=== PATIENT | male | born 1985 | race Caucasian/White ===

== ENCOUNTER 2016-01-17 10:21 | Inpatient (IN) | payer OTHER ==
[2016-01-17] MEDS ORDERED: MAGNESIUM CITRATE 300 ML BOTTLE PO PRN (11:05)
[2016-01-17] MEDS ORDERED: LOPERAMIDE HCL 2 MG CAPSULE PO PRN (11:05)
[2016-01-17] MEDS ORDERED: MENTHOL/PHENOL 1 EACH UD MM PRN (11:05)
[2016-01-17] MEDS ORDERED: MAGNESIUM HYDROX 2400MG/30ML ORAL SUSPENSION 30 ML CUP PO PRN (11:05)
[2016-01-17] MEDS ORDERED: NICOTINE POLACRILEX 4 MG GUM BUC PRN (11:05)
[2016-01-17] MEDS ORDERED: P-EPHED 60MG/TRIPROLIDI 2.5MG TABLET PO PRN (11:05)
[2016-01-17] MEDS ORDERED: ACETAMINOPHEN 325 MG TABLET (FP) PO PRN (11:05)
[2016-01-17] MEDS ORDERED: IBUPROFEN 400 MG TABLET (FP) PO PRN ×2 (11:05→11:11)
[2016-01-17] MEDS ORDERED: guaiFENesin/D-METHORPHAN HB 10 ML UNIT-DOSE CUPS PO PRN (11:05)
[2016-01-17] MEDS ORDERED: MAG HYDROX/AL HYDROX/SIMETH 30 ML UNIT-DOSE CUP PO PRN (11:05)
[2016-01-17] MEDS ORDERED: LIDOCAINE VISCOUS 2% ORAL/TOP 20 ML UNIT-DOSE CUP MM PRN (11:07)
--- NOTE | 2016-01-17 11:13 | HP ---
[facility] Rehab Assess/Revision - Admission History Admitted to Rehab from: [facility] [place] Date of Admission to Rehab: 01/17/16 - Vital signs Vital Signs: Vital Signs - 24 hr 01/17/16 11:32 Temperature 98.2 F Pulse Rate 82 Respiratory 18 Rate Blood Pressure 120/66 - Findings Detox History & Physical reviewed: Yes Concur with findings: Yes
[2016-01-17] MEDS: THIAMINE HCL 100 MG TABLET (FP) PO SCH (21:22)
[2016-01-17] MEDS: diphenhydrAMINE HCL 50 MG CAPSULE PO PRN (21:22)
[2016-01-17] MEDS ORDERED: IBUPROFEN 600 MG TABLET (FP) PO PRN (21:24)
[2016-01-18] MEDS: NICOTINE 21 MG/24 HOURS TOPICAL PATCH TD SCH (09:54)
[2016-01-18] MEDS: PRENATAL VITAMINS W/ FOLIC ACID TABLET (FP) PO SCH (09:54)
[2016-01-18] MEDS: THIAMINE HCL 100 MG TABLET (FP) PO SCH (21:35)
[2016-01-18] MEDS: QUEtiapine FUMARATE 50 MG TABLET PO SCH (21:35)
[2016-01-18] MEDS: diphenhydrAMINE HCL 50 MG CAPSULE PO PRN (21:36)
[2016-01-19] MEDS: NICOTINE 21 MG/24 HOURS TOPICAL PATCH TD SCH (09:46)
[2016-01-19] MEDS: PRENATAL VITAMINS W/ FOLIC ACID TABLET (FP) PO SCH (09:46)
--- NOTE | 2016-01-19 11:07 | HP ---
Psychiatrist Admission - Data Date of interview: 01/19/16 Admission source: [facility] Identifying data: THis is the first [facility] inpatient rehabilitation admission for thsi 30 year old single male unemployed father of one, residing with his mother in [facility]. Medical History: Report a good health, smokes cigarettes a Psychiatric History: Patient states was seen by a psychiatrist while at [facility] to address depressed mood and insomnia and started with Seroquel 50 mg po hs, with fair response. No history of psychiatric hospitalizations. Physical/Sexual Abuse/Trauma History: Denies history of sexual, physical and verbal abuse. Vital Signs: Vital Signs - 24 hr 01/19/16 01/19/16 01/19/16 00:30 03:30 07:00 Temperature 97.0 F L Pulse Rate 82 Respiratory 18 18 18 Rate Blood Pressure 125/76 Allergies/Adverse Reactions: Allergies Allergy/AdvReac Type Severity Reaction Status Date / Time No Known Allergies Allergy Verified 01/12/16 17:33 Date of last physical exam: 01/12/16 Concur with the findings of this exam: Yes - Substance Abuse/Tx History Hx Alcohol Use: No Hx Substance Use: Yes Substance Use Type: Cocaine (1 bag), Heroin (10 bags), Marijuana (1 blunt) Hx Substance Use Treatment: Yes ([facility]) - Admission Criteria Previous failed treatment: Yes Poor recovery environment: Yes Comorbidities: Yes Lacks judgement: Yes Mental Status Exam - Mental Status Exam Alert and Oriented to: Time, Place, Person Cognitive Function: Grossly Intact Patient Appearance: Well Groomed Mood: Depressed, Sad Affect: Appropriate, Inappropriate, Mood Congruent Patient Behavior: Appropriate, Cooperative Speech Pattern: Clear, Appropriate Voice Loudness: Normal Thought Process: Intact, Goal Oriented Thought Disorder: Not Present Hallucinations: Denies Suicidal Ideation: Denies Homicidal Ideation: Denies Insight/Judgement: Fair Sleep: Fair Appetite: Fair Muscle strength/Tone: Normal Gait/Station: Normal Psychiatric Findings - Problem List ([place] 1, 2,3) (1) Cannabis dependence, uncomplicated Current Visit: No Status: Acute (2) Cocaine dependence, uncomplicated Current Visit: No Status: Acute (3) Insomnia Current Visit: No Status: Acute Qualifiers: Insomnia type: drug-induced Qualified Code(s): F19.982 - Other psychoactive substance use, unspecified with psychoactive substance-induced sleep disorder (4) Opioid dependence with withdrawal Current Visit: No Status: Acute (5) Mood disorder Current Visit: Yes Status: Acute - Initial Treatment Plan Initial Treatment Plan: will continue seroquel, monitor progress as needed.
[2016-01-19] MEDS: diphenhydrAMINE HCL 50 MG CAPSULE PO PRN (21:17)
[2016-01-19] MEDS: QUEtiapine FUMARATE 50 MG TABLET PO SCH (21:17)
[2016-01-19] MEDS: THIAMINE HCL 100 MG TABLET (FP) PO SCH (21:17)
[2016-01-20] MEDS: PRENATAL VITAMINS W/ FOLIC ACID TABLET (FP) PO SCH (09:55)
[2016-01-20] MEDS: NICOTINE 21 MG/24 HOURS TOPICAL PATCH TD SCH (09:55)
[2016-01-20] MEDS: diphenhydrAMINE HCL 50 MG CAPSULE PO PRN (21:35)
[2016-01-20] MEDS: QUEtiapine FUMARATE 50 MG TABLET PO SCH (21:35)
[2016-01-20] MEDS: THIAMINE HCL 100 MG TABLET (FP) PO SCH (21:36)
[2016-01-21] MEDS: NICOTINE 21 MG/24 HOURS TOPICAL PATCH TD SCH (09:52)
[2016-01-21] MEDS: PRENATAL VITAMINS W/ FOLIC ACID TABLET (FP) PO SCH (09:52)
[2016-01-21] MEDS: diphenhydrAMINE HCL 50 MG CAPSULE PO PRN (21:36)
[2016-01-21] MEDS: THIAMINE HCL 100 MG TABLET (FP) PO SCH (21:36)
[2016-01-21] MEDS: QUEtiapine FUMARATE 50 MG TABLET PO SCH (21:36)
[2016-01-22] MEDS: NICOTINE 21 MG/24 HOURS TOPICAL PATCH TD SCH (10:20)
[2016-01-22] MEDS: PRENATAL VITAMINS W/ FOLIC ACID TABLET (FP) PO SCH (10:20)
[2016-01-22] MEDS: THIAMINE HCL 100 MG TABLET (FP) PO SCH (21:46)
[2016-01-22] MEDS: QUEtiapine FUMARATE 50 MG TABLET PO SCH (21:46)
[2016-01-22] MEDS: diphenhydrAMINE HCL 50 MG CAPSULE PO PRN (21:47)
[2016-01-23] MEDS: NICOTINE 21 MG/24 HOURS TOPICAL PATCH TD SCH (09:52)
[2016-01-23] MEDS: PRENATAL VITAMINS W/ FOLIC ACID TABLET (FP) PO SCH (09:52)
[2016-01-23] MEDS: THIAMINE HCL 100 MG TABLET (FP) PO SCH (21:41)
[2016-01-23] MEDS: QUEtiapine FUMARATE 50 MG TABLET PO SCH (21:41)
[2016-01-23] MEDS: diphenhydrAMINE HCL 50 MG CAPSULE PO PRN (21:42)
[2016-01-24] MEDS: NICOTINE 21 MG/24 HOURS TOPICAL PATCH TD SCH (09:48)
[2016-01-24] MEDS: PRENATAL VITAMINS W/ FOLIC ACID TABLET (FP) PO SCH (09:48)
[2016-01-24] MEDS: QUEtiapine FUMARATE 50 MG TABLET PO SCH (21:33)
[2016-01-24] MEDS: THIAMINE HCL 100 MG TABLET (FP) PO SCH (21:33)
[2016-01-24] MEDS: diphenhydrAMINE HCL 50 MG CAPSULE PO PRN (21:34)
[2016-01-25] MEDS: NICOTINE 21 MG/24 HOURS TOPICAL PATCH TD SCH (10:35)
[2016-01-25] MEDS: PRENATAL VITAMINS W/ FOLIC ACID TABLET (FP) PO SCH (10:35)
[2016-01-25] MEDS: QUEtiapine FUMARATE 50 MG TABLET PO SCH (21:23)
[2016-01-25] MEDS: THIAMINE HCL 100 MG TABLET (FP) PO SCH (21:23)
[2016-01-26] MEDS: NICOTINE 21 MG/24 HOURS TOPICAL PATCH TD SCH (10:32)
[2016-01-26] MEDS: PRENATAL VITAMINS W/ FOLIC ACID TABLET (FP) PO SCH (10:32)
[2016-01-26] MEDS: THIAMINE HCL 100 MG TABLET (FP) PO SCH (21:14)
[2016-01-26] MEDS: QUEtiapine FUMARATE 50 MG TABLET PO SCH (21:14)
[2016-01-26] MEDS: diphenhydrAMINE HCL 50 MG CAPSULE PO PRN (21:15)
[2016-01-27] MEDS: PRENATAL VITAMINS W/ FOLIC ACID TABLET (FP) PO SCH (10:40)
[2016-01-27] MEDS: NICOTINE 21 MG/24 HOURS TOPICAL PATCH TD SCH (10:40)
[2016-01-27] MEDS: QUEtiapine FUMARATE 50 MG TABLET PO SCH (21:33)
[2016-01-27] MEDS: THIAMINE HCL 100 MG TABLET (FP) PO SCH (21:33)
[2016-01-28] MEDS: NICOTINE 21 MG/24 HOURS TOPICAL PATCH TD SCH (10:23)
[2016-01-28] MEDS: PRENATAL VITAMINS W/ FOLIC ACID TABLET (FP) PO SCH (10:23)
[2016-01-28] MEDS: QUEtiapine FUMARATE 50 MG TABLET PO SCH (21:45)
[2016-01-28] MEDS: THIAMINE HCL 100 MG TABLET (FP) PO SCH (21:45)
[2016-01-29] MEDS: NICOTINE 21 MG/24 HOURS TOPICAL PATCH TD SCH (10:25)
[2016-01-29] MEDS: PRENATAL VITAMINS W/ FOLIC ACID TABLET (FP) PO SCH (10:25)
[2016-01-29] MEDS: THIAMINE HCL 100 MG TABLET (FP) PO SCH (21:48)
[2016-01-29] MEDS: diphenhydrAMINE HCL 50 MG CAPSULE PO PRN (21:48)
[2016-01-29] MEDS: QUEtiapine FUMARATE 50 MG TABLET PO SCH (21:48)
[2016-01-30] MEDS: NICOTINE 21 MG/24 HOURS TOPICAL PATCH TD SCH (09:57)
[2016-01-30] MEDS: PRENATAL VITAMINS W/ FOLIC ACID TABLET (FP) PO SCH (09:57)
[2016-01-30] MEDS: diphenhydrAMINE HCL 50 MG CAPSULE PO PRN (21:09)
[2016-01-30] MEDS: QUEtiapine FUMARATE 50 MG TABLET PO SCH (21:09)
[2016-01-30] MEDS: THIAMINE HCL 100 MG TABLET (FP) PO SCH (21:09)
[2016-01-31] MEDS: PRENATAL VITAMINS W/ FOLIC ACID TABLET (FP) PO SCH (09:58)
[2016-01-31] MEDS: NICOTINE 21 MG/24 HOURS TOPICAL PATCH TD SCH (09:58)
[2016-01-31] MEDS: QUEtiapine FUMARATE 50 MG TABLET PO SCH (22:00)
[2016-01-31] MEDS: THIAMINE HCL 100 MG TABLET (FP) PO SCH (22:00)
[2016-01-31] MEDS: diphenhydrAMINE HCL 50 MG CAPSULE PO PRN (22:01)
[2016-02-01] MEDS: PRENATAL VITAMINS W/ FOLIC ACID TABLET (FP) PO SCH (09:47)
[2016-02-01] MEDS: NICOTINE 21 MG/24 HOURS TOPICAL PATCH TD SCH (09:47)
[2016-02-01] MEDS: diphenhydrAMINE HCL 50 MG CAPSULE PO PRN (21:42)
[2016-02-01] MEDS: QUEtiapine FUMARATE 50 MG TABLET PO SCH (21:42)
[2016-02-01] MEDS: THIAMINE HCL 100 MG TABLET (FP) PO SCH (21:42)
[2016-02-02] MEDS: NICOTINE 21 MG/24 HOURS TOPICAL PATCH TD SCH (10:01)
[2016-02-02] MEDS: PRENATAL VITAMINS W/ FOLIC ACID TABLET (FP) PO SCH (10:01)
[2016-02-02] MEDS: THIAMINE HCL 100 MG TABLET (FP) PO SCH (21:32)
[2016-02-02] MEDS: QUEtiapine FUMARATE 50 MG TABLET PO SCH (21:33)
[2016-02-02] MEDS: diphenhydrAMINE HCL 50 MG CAPSULE PO PRN (22:21)
[2016-02-03] MEDS: PRENATAL VITAMINS W/ FOLIC ACID TABLET (FP) PO SCH (10:19)
[2016-02-03] MEDS: NICOTINE 21 MG/24 HOURS TOPICAL PATCH TD SCH (10:19)
[2016-02-03] MEDS: QUEtiapine FUMARATE 50 MG TABLET PO SCH (21:17)
[2016-02-03] MEDS: THIAMINE HCL 100 MG TABLET (FP) PO SCH (21:17)
[2016-02-04] MEDS: NICOTINE 21 MG/24 HOURS TOPICAL PATCH TD SCH (10:06)
[2016-02-04] MEDS: PRENATAL VITAMINS W/ FOLIC ACID TABLET (FP) PO SCH (10:06)
[2016-02-04] MEDS: QUEtiapine FUMARATE 50 MG TABLET PO SCH (21:29)
[2016-02-04] MEDS: THIAMINE HCL 100 MG TABLET (FP) PO SCH (21:29)
[2016-02-05] MEDS: NICOTINE 21 MG/24 HOURS TOPICAL PATCH TD SCH (10:03)
[2016-02-05] MEDS: PRENATAL VITAMINS W/ FOLIC ACID TABLET (FP) PO SCH (10:03)
[2016-02-05] MEDS: QUEtiapine FUMARATE 50 MG TABLET PO SCH (21:56)
[2016-02-05] MEDS: diphenhydrAMINE HCL 50 MG CAPSULE PO PRN (21:56)
[2016-02-05] MEDS: THIAMINE HCL 100 MG TABLET (FP) PO SCH (21:56)
[2016-02-06] MEDS: PRENATAL VITAMINS W/ FOLIC ACID TABLET (FP) PO SCH (10:02)
[2016-02-06] MEDS: NICOTINE 21 MG/24 HOURS TOPICAL PATCH TD SCH (10:02)
[2016-02-06] MEDS: QUEtiapine FUMARATE 50 MG TABLET PO SCH (21:31)
[2016-02-06] MEDS: THIAMINE HCL 100 MG TABLET (FP) PO SCH (21:31)
[2016-02-06] MEDS: diphenhydrAMINE HCL 50 MG CAPSULE PO PRN (21:32)
[2016-02-07] MEDS: NICOTINE 21 MG/24 HOURS TOPICAL PATCH TD SCH (09:52)
[2016-02-07] MEDS: PRENATAL VITAMINS W/ FOLIC ACID TABLET (FP) PO SCH (09:52)
[2016-02-07] MEDS: QUEtiapine FUMARATE 50 MG TABLET PO SCH (21:40)
[2016-02-07] MEDS: THIAMINE HCL 100 MG TABLET (FP) PO SCH (21:40)
[2016-02-07] MEDS: diphenhydrAMINE HCL 50 MG CAPSULE PO PRN (21:40)
[2016-02-08] MEDS: PRENATAL VITAMINS W/ FOLIC ACID TABLET (FP) PO SCH (09:37)
[2016-02-08] MEDS: NICOTINE 21 MG/24 HOURS TOPICAL PATCH TD SCH (09:37)
[2016-02-08] MEDS: QUEtiapine FUMARATE 50 MG TABLET PO SCH (21:41)
[2016-02-08] MEDS: THIAMINE HCL 100 MG TABLET (FP) PO SCH (21:41)
[2016-02-09] MEDS: NICOTINE 21 MG/24 HOURS TOPICAL PATCH TD SCH (09:49)
[2016-02-09] MEDS: PRENATAL VITAMINS W/ FOLIC ACID TABLET (FP) PO SCH (09:49)
[2016-02-09] MEDS: THIAMINE HCL 100 MG TABLET (FP) PO SCH (21:46)
[2016-02-09] MEDS: QUEtiapine FUMARATE 50 MG TABLET PO SCH (21:46)
[2016-02-09] MEDS: diphenhydrAMINE HCL 50 MG CAPSULE PO PRN (21:47)
[2016-02-10] MEDS: PRENATAL VITAMINS W/ FOLIC ACID TABLET (FP) PO SCH (09:53)
[2016-02-10] MEDS: NICOTINE 21 MG/24 HOURS TOPICAL PATCH TD SCH (09:53)
[2016-02-10] MEDS: diphenhydrAMINE HCL 50 MG CAPSULE PO PRN (21:07)
[2016-02-10] MEDS: QUEtiapine FUMARATE 50 MG TABLET PO SCH (21:07)
[2016-02-10] MEDS: THIAMINE HCL 100 MG TABLET (FP) PO SCH (21:07)
[2016-02-11] MEDS: NICOTINE 21 MG/24 HOURS TOPICAL PATCH TD SCH (09:55)
[2016-02-11] MEDS: PRENATAL VITAMINS W/ FOLIC ACID TABLET (FP) PO SCH (09:56)
--- NOTE | 2016-02-11 17:17 | PN ---
Psychiatric Progress Note Vital Signs: Vital Signs Period Temp Pulse Resp BP Sys/Gibson Pulse Ox Last 24 Hr 97.3 F 86 18-18 113/70 Date of Session: 02/11/16 Chief Complaint:: Discharge visit HPI: Patient addressed Cocaine,Cannabis and Opioid dependence comorbid with Substance induced mood disorder. ROS: unremarkable Current Medications: Active Medications Generic Name Dose Route Start Last Admin Trade Name Freq PRN Reason Stop Dose Admin Acetaminophen 650 mg 01/17/16 11:05 01/25/16 21:23 Tylenol - PO 650 mg Q4H PRN Administration FEVER OR PAIN Al Hydroxide/Mg Hydroxide 30 ml 01/17/16 11:05 Mylanta Oral Suspension - PO Q6H PRN DYSPEPSIA Diphenhydramine HCl 50 mg 01/17/16 11:05 02/10/16 21:07 Benadryl - PO 50 mg HSMR1 PRN Administration FOR ITCHING Eucalyptus/Menthol/Phenol/Sorbitol 1 each 01/17/16 11:05 Cepastat Lozenge - MM Q4H PRN SORE THROAT Guaifenesin 10 ml 01/17/16 11:05 Robitussin Dm - PO Q6H PRN COUGH Ibuprofen 600 mg 01/17/16 21:24 01/17/16 21:54 Motrin - PO 600 mg Q6H PRN Administration PAIN Lidocaine HCl 20 ml 01/17/16 11:07 Xylocaine 2% Viscous Oral - MM Q4HPO PRN ORAL PAIN/MOUTH SORES Loperamide HCl 4 mg 01/17/16 11:05 Imodium - PO Q6H PRN DIARRHEA Magnesium Hydroxide 30 ml 01/17/16 11:05 Milk Of Magnesia - PO DAILY PRN CONSTIPATION Nicotine 21 mg 01/18/16 10:00 02/11/16 09:55 Nicoderm Patch - TD Not Given DAILY BETTY Nicotine Polacrilex 4 mg 01/17/16 11:05 Nicorette Gum - BUC Q2H PRN NICOTINE REPLACEMENT RX Multivit/Folic Acid/Iron 1 tab 01/18/16 10:00 02/11/16 09:56 Vitamins (Sjr) - PO Not Given DAILY BETTY Pseudoephedrine/Triprolidine 1 combo 01/17/16 11:05 Actifed - PO TID PRN NASAL CONGESTION Quetiapine Fumarate 50 mg 01/18/16 22:00 01/03/17 21:07 Seroquel - PO 50 mg HS BETTY Administration Thiamine HCl 100 mg 01/17/16 22:00 02/10/16 21:07 Vitamin B1 - PO 100 mg HS BETTY Administration Current Side Effect: No Lab tests ordered: No Lab tests reviewed: Yes Provider note:: Patient will complete this program tomorrow 02/12/2016.He has met his treatment goals and will continue to address his issues on outpatient basis at [facility] rehabilitation program.Patient continues to find that seroquel 50 mg po hs helps to reduce some sleeping difficulties as well as mood instability.script for 30 days provided. Therapy provided focusing on copins skills,support system utilization to prevent relapse,maintain recovery process. Patient is stable for discharge tomorrow 02/12/16. Total face to face time:: 30 Mental Status Exam - Mental Status Exam Alert and Oriented to: Time, Place, Person Cognitive Function: Grossly Intact Patient Appearance: Well Groomed Mood: Hopeful, Euthymic Affect: Appropriate, Mood Congruent Patient Behavior: Cooperative Speech Pattern: Clear Voice Loudness: Normal Thought Process: Goal Oriented Thought Disorder: Not Present Hallucinations: Denies Suicidal Ideation: Denies Homicidal Ideation: Denies Insight/Judgement: Fair Sleep: Fair Appetite: Good Muscle strength/Tone: Normal Gait/Station: Normal Psychiatric Treatment Plan - Problem List (1) Cannabis dependence, uncomplicated Current Visit: No (2) Cocaine dependence, uncomplicated Current Visit: No (3) Opioid dependence with withdrawal Current Visit: No (4) Substance induced mood disorder Current Visit: Yes
[2016-02-11] MEDS: QUEtiapine FUMARATE 50 MG TABLET PO SCH (21:58)
[2016-02-11] MEDS: THIAMINE HCL 100 MG TABLET (FP) PO SCH (21:58)
[2016-02-12 06:43] VITALS: BP 118/74; PULSE 74; TEMP 97.9
[2016-02-12] MEDS: NICOTINE 21 MG/24 HOURS TOPICAL PATCH TD SCH (10:00)
[2016-02-12] MEDS: PRENATAL VITAMINS W/ FOLIC ACID TABLET (FP) PO SCH (10:00)
== END 2016-02-12 10:15 | disposition home or self-care (01) | DRG 772 ==
LOC: YASAS 10:21 → Y5N 10:23
PROVIDERS: ADMIT Psychiatry & Neurology Psychiatry; ATTEND Psychiatry & Neurology Psychiatry
PROC: HZ42ZZZ Group Counseling for Substance Abuse Treatment, Cognitive-Behavioral (ICD-10-PCS; principal; 2016-01-17)
DX: F11.20 Opioid dependence, uncomplicated (principal); F14.20 Cocaine dependence, uncomplicated; F12.20 Cannabis dependence, uncomplicated; F17.210 Nicotine dependence, cigarettes, uncomplicated; F19.24 Other psychoactive substance dependence with psychoactive substance-induced mood disorder; F39 Unspecified mood [affective] disorder; G47.00 Insomnia, unspecified

== ENCOUNTER 2019-07-29 13:44 | Inpatient (IN) | payer OTHER ==
--- NOTE | 2019-07-29 14:58 | BHS.RME ---
Substance Use & Tx History - Substance Use History Heroin Substance amount: 6 bags of fentonyl Frequency of use: Daily Substance route: Inhalation (ex: sniffing or snorting) Date of Last Use: 07/30/19 - Last Treatment Where was last treatment: Detox Physical/Psych/Mental Status - Behavior Eye Contact: Normal - Cooperativeness Cooperativeness: Cooperative - Thinking Thought Processes: Logical Thought content: Future oriented - Physical Health Problems Is patient presently having any pain?: No Does patient presently have any injuries (include location): No Does patient currently have a fever: No COWS - Scale Resting Pulse: 0= [place] 80 or Below Sweatin= Chills/Flushing Restless Observation: 3= Extraneous Movement Pupil Size: 1= Pupils >than Normal Bone or Joint Aches: 2= Severe Diffuse Aches Runny Nose/ Eye Tearin= Runny Nose/Eyes GI Upset > 30mins: 2= Nausea/Diarrhea Tremor Observation: 2= Slight Tremor Visible Yawning Observation: 1= 1-2x During Session Anxiety or Irritability: 2=Irritable/Anxious Goose Flesh Skin: 0=Smooth Skin COWS Score: 16
--- NOTE | 2019-07-29 15:06 | HP ---
COWS - Scale Resting Pulse: 0= [place] 80 or Below Sweatin= Chills/Flushing Restless Observation: 3= Extraneous Movement Pupil Size: 1= Pupils >than Normal Bone or Joint Aches: 2= Severe Diffuse Aches Runny Nose/ Eye Tearin= Runny Nose/Eyes GI Upset > 30mins: 2= Nausea/Diarrhea Tremor Observation: 2= Slight Tremor Visible Yawning Observation: 1= 1-2x During Session Anxiety or Irritability: 2=Irritable/Anxious Goose Flesh Skin: 0=Smooth Skin COWS Score: 16 CIWA Score - Admission Criteria OASAS Guidelines: Admission for Medically Managed Detox: Requires at least one of the followin. CIWA greater than 12 2. Seizures within the past 24 hours 3. Delirium tremens within the past 24 hours 4. Hallucinations within the past 24 hours 5. Acute intervention needed for co occurring medical disorder 6. Acute intervention needed for co occurring psychiatric disorder 7. Severe withdrawal that cannot be handled at a lower level of care (continued vomiting, continued diarrhea, abnormal vital signs) requiring intravenous medication and/or fluids 8. Admitting History and Physical - Admission Chief Complaint: I am here for detox from heroin History of Present Illness: this 33 years old male with heroin dependence seeking detox,had previous admission in this facility before History Source: Patient Limitations to Obtaining History: No Limitations - Past Medical History Psych: Yes: Anxiety, Depression Additional Past Medical History: had laceration of right upper arm on 07/26/19 with stitches treated at [facility] - Smoking History Smoking history: Current every day smoker Have you smoked in the past 12 months: Yes Aproximately how many cigarettes per day: 10 - Alcohol/Substance Use Hx Alcohol Use: No History of Substance Use: reports: Heroin Date of Last Use: 07/29/19 - Social History Usual Living Arrangement: Yes: With Parent Do you think of yourself as: Straight/Heterosexual ADL: Support Services Occupation: unemployed History of Recent Travel: No Other Social History: unemployed,no legal issue Admission ROS [facility] Chief Complaint: i amhere to stop using fentanyl Allergies/Adverse Reactions: Allergies Allergy/AdvReac Type Severity Reaction Status Date / Time No Known Allergies Allergy Verified 07/29/19 15:29 History of Present Illness: This 33 years old male with fentonyl dependence,seeking detox,withdrawal symptom Exam Limitations: No Limitations - Ebola screening Have you traveled outside of the country in the last 21 days: No Have you had contact with anyone from an Ebola affected area: No Have you been sick,other than usual withdrawal symptoms: No Do you have a fever: No - Review of Systems Constitutional: Chills, Loss of Appetite, Malaise, Night Sweats, Changes in sleep, Weakness EENT: reports: Nose Congestion Respiratory: reports: No Symptoms reported Cardiac: reports: No Symptoms Reported GI: reports: Nausea, Poor Appetite, Abdominal cramping Musculoskeletal: reports: Back Pain, Muscle Pain Integumentary: reports: Dryness Neuro: reports: Headache, Tremors Endocrine: reports: No Symptoms Reported Hematology: reports: No Symptoms Reported Psychiatric: reports: No Sypmtoms Reported, Judgement Intact, Mood/Affect Appropiate, Orientated x3, Anxious, Depressed (insomnia) Other Systems: Reviewed and Negative Patient History - Patient Medical History Hx Anemia: No Hx Asthma: No Hx Chronic Obstructive Pulmonary Disease (COPD): No Hx Cancer: No Hx Cardiac Disorders: No Hx Congestive Heart Failure: No Hx Hypertension: No Hx Hypercholesterolemia: No Hx Pacemaker: No HX Cerebrovascular Accident: No Hx Seizures: No Hx Dementia: No Hx Diabetes: No Hx Gastrointestinal Disorders: No Hx Liver Disease: No Hx Genitourinary Disorders: No Hx Sexually Transmitted Disorders: No Hx Renal Disease (ESRD): No Hx Thyroid Disease: No Hx Human Immunodeficiency Virus (HIV): No (NEGATIVE last 2017) Hx Hepatitis C: No Hx Depression: Yes (anxiety) Hx Suicide Attempt: No Hx Bipolar Disorder: No Hx Schizophrenia: No Other Medical History: no suicidal,no homicidal - Patient Surgical History Past Surgical History: No Hx Neurologic Surgery: No Hx Cataract Extraction: No Hx Cardiac Surgery: No Hx Lung Surgery: No Hx Breast Surgery: No Hx Breast Biopsy: No Hx Abdominal Surgery: No Hx Appendectomy: No Hx Cholecystectomy: No Hx Genitourinary Surgery: No Hx Section: No Hx Orthopedic Surgery: No Anesthesia Reaction: No - PPD History Date: 01/14/16 Results: 0 MM - Smoking Cessation Smoking history: Current every day smoker Have you smoked in the past 12 months: Yes Aproximately how many cigarettes per day: 10 Cigars Per Day: 0 Hx Chewing Tobacco Use: No Initiated information on smoking cessation: Yes 'Breaking Loose' booklet given: 07/29/19 - Substance & Tx. History Hx Alcohol Use: No Hx Substance Use: Yes Substance Use Type: Opiates Hx Substance Use Treatment: Yes ([facility] 04/14/16 to 04/17/16) - Substances abused Heroin Other (specify): FENTONYL Substance route: Inhalation Frequency: Daily Amount used: 6 to 10 bags Age of first use: 27 Date of last use: 07/29/19 Marijuana/Hashish Frequency: Daily Amount used: 20$ Age of first use: 17 Date of last use: 07/26/19 Admission Physical Exam [facility] - Vital Signs Vital Signs: Vital Signs Temperature 98 F 07/29/19 15:30 Pulse Rate 77 07/29/19 15:30 Respiratory Rate 18 07/29/19 15:30 Blood Pressure 115/68 07/29/19 15:30 O2 Sat by Pulse Oximetry (%) 99 07/29/19 15:52 - Physical General Appearance: Yes: Moderate Distress, Tremorous, Irritable, Sweating, Anxious HEENTM: Yes: Normal ENT Inspection, BEBETO, Pharynx Normal Respiratory: Yes: Lungs Clear, Normal Breath Sounds, No Respiratory Distress Neck: Yes: Within Normal Limits, Supple, Trachea in good position Breast: Yes: Within Normal Limits Cardiology: Yes: Within Normal Limits, Regular Rhythm, Regular Rate, S1, S2 Abdominal: Yes: Within Normal Limits, Normal Bowel Sounds, Non Tender, Flat, Soft Genitourinary: Yes: Within Normal Limits Back: Yes: Muscle Spasm Musculoskeletal: Yes: Back pain, Muscle Pain, Other (laceration of rightelbow with stitches) Extremities: Yes: Within Normal Limits, Normal Range of Motion, Tremors Neurological: Yes: color card maker II-XII NML intact, Fully Oriented, Alert, Motor Strength 5/5 Integumentary: Yes: Dry Lymphatic: Yes: Within Normal Limits - Diagnostic (1) Opioid dependence with withdrawal Current Visit: No Status: Acute (2) Cannabis dependence, uncomplicated Current Visit: No Status: Acute (3) Nicotine dependence Current Visit: No Status: Acute Qualifiers: Nicotine product type: cigarettes Substance use status: in withdrawal Qualified Code(s): F17.213 - Nicotine dependence, cigarettes, with withdrawal (4) Insomnia secondary to depression with anxiety Current Visit: Yes Status: Acute (5) Laceration of elbow, right Current Visit: Yes Status: Acute Cleared for Admission [facility] - Detox or Rehab [facility] Level of Care: Medically Managed Detox Regimen/Protocol: Methadone Inpatient Rehab Admission - Rehab Decision to Admit Inpatient rehab admission?: No
[2019-07-29] MEDS ORDERED: MAG HYDROX/AL HYDROX/SIMETH 30 ML UNIT-DOSE CUP PO PRN (15:28)
[2019-07-29] MEDS ORDERED: MAGNESIUM HYDROX 2400MG/30ML ORAL SUSPENSION 30 ML CUP PO PRN (15:28)
[2019-07-29] MEDS ORDERED: ACETAMINOPHEN 325 MG TABLET (FP) PO PRN ×2 (15:28)
[2019-07-29] MEDS ORDERED: METHADONE HCL 10 MG TABLET (FOR DETOX USE ONLY) PO ONE (15:28)
[2019-07-29] MEDS ORDERED: BISMUTH SUBSALICYLATE 524 MG/30 ML UD PO PRN (15:28)
[2019-07-29] MEDS ORDERED: NICOTINE POLACRILEX 2 MG GUM BUC PRN (15:28)
[2019-07-29] MEDS ORDERED: MAGNESIUM CITRATE 300 ML BOTTLE PO PRN (15:28)
[2019-07-29] MEDS ORDERED: cloNIDine HCL 0.1 MG TABLET PO PRN (15:28)
[2019-07-29] MEDS ORDERED: IBUPROFEN 400 MG TABLET (FP) PO PRN (15:28)
[2019-07-29] MEDS ORDERED: MENTHOL/PHENOL 1 EACH UD MM PRN (15:28)
[2019-07-29] MEDS ORDERED: ONDANSETRON *ODT* 4 MG TABLET SL ONE (15:28)
[2019-07-29 15:34] VITALS: BMI 23.2
[2019-07-29] MEDS ORDERED: BACITRACIN 15 GM TUBE TOPICAL OINTMENT TP SCH (15:45)
[2019-07-29] MEDS: diazePAM 5 MG TABLET PO PRN ×2 (16:27→20:38)
[2019-07-29] MEDS: NICOTINE 21 MG/24 HOURS TOPICAL PATCH TD SCH (16:40)
[2019-07-29] MEDS: hydrOXYzine PAMOATE 25 MG CAPSULE (FP) PO SCH ×2 (19:00→22:01)
[2019-07-29] MEDS: BACITRACIN 0.9 GM PACKET TP SCH (19:11)
[2019-07-29] MEDS: MELATONIN 5 MG TABLETS PO SCH (22:00)
[2019-07-29] MEDS: THIAMINE HCL 100 MG TABLET (FP) PO SCH (22:01)
[2019-07-30] MEDS: diazePAM 5 MG TABLET PO PRN ×4 (05:39→22:06)
[2019-07-30] MEDS: hydrOXYzine PAMOATE 25 MG CAPSULE (FP) PO SCH ×2 (05:39→10:45)
[2019-07-30] MEDS ORDERED: METHADONE HCL 5 MG TABLET (FOR DETOX USE ONLY) ONE (08:36)
[2019-07-30] MEDS ORDERED: METHADONE HCL 10 MG TABLET (FOR DETOX USE ONLY) ONE (08:37)
[2019-07-30] MEDS ORDERED: METHADONE (DETOX) 20 MG, METHADONE (DETOX) 5 MG PO ONE (10:00)
[2019-07-30 10:17] LABS: HEMATOCRIT 35.7 % (35.4-49); HEMOGLOBIN 11.8 GM/dL (11.7-16.9); MCHC 32.9 g/dl (32.0-35.9); MEAN CELL VOLUME 91.1 fl (80-96); MEAN PLT VOLUME 9.2 fl (7.5-11.1); PLATELET COUNT 180 K/MM3 (134-434); RBC 3.92 M/mm3 (4.00-5.60); RDW 13.1 % (11.9-15.9); WHITE BLOOD COUNT 5.2 K/mm3 (4.0-10.0)
[2019-07-30 10:29] LABS: ALBUMIN 3.5 g/dl (3.4-5.0); BILIRUBIN,TOTAL 0.3 mg/dL (0.2-1); BLOOD UREA NITROGEN 13.4 mg/dL (7-18); CALCIUM 8.8 mg/dL (8.5-10.1); CREATININE 0.9 mg/dL (0.55-1.3); POTASSIUM 4.4 mmol/L (3.5-5.1); TOT PROT 6.2 g/dl (6.4-8.2)
[2019-07-30] MEDS: BACITRACIN 0.9 GM PACKET TP SCH (10:41)
[2019-07-30] MEDS: NICOTINE 21 MG/24 HOURS TOPICAL PATCH TD SCH (10:41)
[2019-07-30] MEDS: hydrOXYzine PAMOATE 25 MG CAPSULE (FP) PO PRN ×2 (10:42→20:23)
[2019-07-30] MEDS: PRENATAL VITAMINS W/ FOLIC ACID TABLET (FP) PO SCH (10:42)
--- NOTE | 2019-07-30 11:08 | CONSULT ---
[facility] Psychiatric Consult - Data Date of interview: 07/30/19 Admission source: Self-referred Identifying data: Mr Donohue is a 33 years old single male, unemployed with no source of income, living with his mother seeking detox treatment for opioid and cannabis Substance Abuse History: Reoprts history of heroin and marijuana use. Refer to addiction counselor's summary for further information Medical History: Unremarkable. Smokes 10 cigarettes daily Psychiatric History: Denies history of previous psychiatric treatment. However, reports slleping poorly and insists on taking Seroquel which he has taken in the past for insomnia Physical/Sexual Abuse/Trauma History: Denies history of abuse as a child or DV relationship as an adult Mental Status Exam - Mental Status Exam Alert and Oriented to: Time, Place, Person Cognitive Function: Fair Patient Appearance: Well Groomed Mood: Hopeful, Euthymic Patient Behavior: Cooperative Speech Pattern: Clear Voice Loudness: Normal Thought Process: Intact Hallucinations: Denies Suicidal Ideation: Denies Homicidal Ideation: Denies Insight/Judgement: Poor Sleep: Poorly Appetite: Fair Muscle strength/Tone: Normal Gait/Station: Normal Psychiatric Findings - Problem List ([place] 1, 2,3) (1) Substance-induced sleep disorder Current Visit: Yes Status: Acute (2) Opioid dependence with withdrawal Current Visit: No Status: Acute (3) Cannabis dependence, uncomplicated Current Visit: No Status: Acute (4) Nicotine dependence Current Visit: No Status: Chronic Qualifiers: Nicotine product type: cigarettes Substance use status: in withdrawal Qualified Code(s): F17.213 - Nicotine dependence, cigarettes, with withdrawal - Initial Treatment Plan Initial Treatment Plan: 1) Start Seroquel 50 mg po HS prn for insomnia. Benefits vs Risks(diabetes mellitus, tardive dyskinesia) discussed with patient and he insists to take Seroquel. 2) Continue inpatient detoxification
--- NOTE | 2019-07-30 11:53 | PN ---
BHS COWS - Scale Resting Pulse: 0= [place] 80 or Below Sweatin= Chills/Flushing Restless Observation: 1= Difficult to Sit Still Pupil Size: 0= Normal to Room Light Bone or Joint Aches: 1= Mild Discomfort Runny Nose/ Eye Tearin= Runny Nose/Eyes GI Upset > 30mins: 0= None Tremor Observation of Outstretched Hands: 1= Tremor [place], Not Seen Yawning Observation: 1= 1-2x During Session Anxiety or Irritability: 2=Irritable/Anxious Goose Flesh Skin: 0=Smooth Skin COWS Score: 9 BHS Progress Note (SOAP) Subjective: agitation sweats interrupted sleep insomnia body aches Objective: 07/30/19 11:51 Vital Signs Temperature 97.5 F L 07/30/19 08:55 Pulse Rate 75 07/30/19 08:55 Respiratory Rate 18 07/30/19 08:55 Blood Pressure 118/75 07/30/19 08:55 O2 Sat by Pulse Oximetry (%) 99 07/30/19 05:25 Laboratory Tests 07/30/19 07/30/19 07/30/19 07:00 07:00 07:00 WBC 5.2 RBC 3.92 L Hgb 11.8 Hct 35.7 MCV 91.1 MCH 30.0 MCHC 32.9 RDW 13.1 Plt Count 180 MPV 9.2 Sodium Potassium Chloride Carbon Dioxide Anion Gap BUN Creatinine Est GFR (CKD-EPI)AfAm Est GFR (CKD-EPI)NonAf Random Glucose Calcium Total Bilirubin AST ALT Alkaline Phosphatase Total Protein Albumin Syphilis Serology Non-reactive HIV Ag/Ab Combo Qual Negative 07/30/19 07:00 WBC RBC Hgb Hct MCV MCH MCHC RDW Plt Count MPV Sodium 141 Potassium 4.4 Chloride 107 Carbon Dioxide 32 Anion Gap 2 L BUN 13.4 Creatinine 0.9 Est GFR (CKD-EPI)AfAm 131.44 Est GFR (CKD-EPI)NonAf 113.41 Random Glucose 82 Calcium 8.8 Total Bilirubin 0.3 AST 27 ALT 33 Alkaline Phosphatase 58 Total Protein 6.2 L Albumin 3.5 Syphilis Serology HIV Ag/Ab Combo Qual labs noted aaox3 ambulating no acute distress Assessment: 07/30/19 11:52 withdrawals Plan: continue detox increase fluids psych ordered
[2019-07-30] MEDS: THIAMINE HCL 100 MG TABLET (FP) PO SCH (22:04)
[2019-07-30] MEDS: MELATONIN 5 MG TABLETS PO SCH (22:06)
[2019-07-30] MEDS: QUEtiapine FUMARATE 50 MG TABLET PO PRN (22:06)
[2019-07-31] MEDS: diazePAM 5 MG TABLET PO PRN ×3 (06:08→21:00)
[2019-07-31] MEDS ORDERED: METHADONE HCL 10 MG TABLET (FOR DETOX USE ONLY) PO ONE ×2 (10:00→12:00)
[2019-07-31] MEDS: BACITRACIN 0.9 GM PACKET TP SCH (10:02)
[2019-07-31] MEDS: NICOTINE 21 MG/24 HOURS TOPICAL PATCH TD SCH (10:02)
[2019-07-31] MEDS: PRENATAL VITAMINS W/ FOLIC ACID TABLET (FP) PO SCH (10:02)
[2019-07-31] MEDS ORDERED: TRIMETHOBENZAMIDE HCL 200MG/2ML INJ IM ONE ×2 (10:55→20:28)
--- NOTE | 2019-07-31 11:35 | PN ---
BHS COWS - Scale Resting Pulse: 1= [place] 81-100 Sweatin= Chills/Flushing Restless Observation: 1= Difficult to Sit Still Pupil Size: 0= Normal to Room Light Bone or Joint Aches: 2= Severe Diffuse Aches Runny Nose/ Eye Tearin= Runny Nose/Eyes GI Upset > 30mins: 2= Nausea/Diarrhea Tremor Observation of Outstretched Hands: 2= Slight Tremor Visible Yawning Observation: 0= None Anxiety or Irritability: 1=Feels Anxious/Irritable Goose Flesh Skin: 0=Smooth Skin COWS Score: 12 BHS Progress Note (SOAP) Subjective: nausea/vomiting sweats shakes body aches Objective: 07/31/19 11:33 Vital Signs Temperature 97.1 F L 07/31/19 08:33 Pulse Rate 86 07/31/19 08:33 Respiratory Rate 16 07/31/19 08:33 Blood Pressure 112/68 07/31/19 08:33 O2 Sat by Pulse Oximetry (%) 98 07/31/19 06:16 Laboratory Tests 07/29/19 07/30/19 07/30/19 15:40 07:00 07:00 WBC RBC Hgb Hct MCV MCH MCHC RDW Plt Count MPV Sodium Potassium Chloride Carbon Dioxide Anion Gap BUN Creatinine Est GFR (CKD-EPI)AfAm Est GFR (CKD-EPI)NonAf Random Glucose Calcium Total Bilirubin AST ALT Alkaline Phosphatase Total Protein Albumin Syphilis Serology Non-reactive COVID-19 ([facility]) Not detected HIV Ag/Ab Combo Qual Negative 07/30/19 07/30/19 07:00 07:00 WBC 5.2 RBC 3.92 L Hgb 11.8 Hct 35.7 MCV 91.1 MCH 30.0 MCHC 32.9 RDW 13.1 Plt Count 180 MPV 9.2 Sodium 141 Potassium 4.4 Chloride 107 Carbon Dioxide 32 Anion Gap 2 L BUN 13.4 Creatinine 0.9 Est GFR (CKD-EPI)AfAm 131.44 Est GFR (CKD-EPI)NonAf 113.41 Random Glucose 82 Calcium 8.8 Total Bilirubin 0.3 AST 27 ALT 33 Alkaline Phosphatase 58 Total Protein 6.2 L Albumin 3.5 Syphilis Serology COVID-19 ([facility]) HIV Ag/Ab Combo Qual aaox3 pt vomited all his medication after medication was given; vomitus witnessed ambulating no acute distress Assessment: 07/31/19 11:34 withdrawals noted Plan: tigan IM x one ordered methadone 20mg x one to be given at 12noon continue with taper as ordered will continue to monitor
--- NOTE | 2019-07-31 20:30 | PN ---
[facility] Progress Note Note: Patient vomited x 1. Vital Signs Temperature 97.1 F L 07/31/19 17:13 Pulse Rate 87 07/31/19 17:13 Respiratory Rate 18 07/31/19 17:13 Blood Pressure 116/79 07/31/19 17:13 O2 Sat by Pulse Oximetry (%) 99 07/31/19 12:35 Laboratory Last Values WBC 5.2 K/mm3 (4.0-10.0) 07/30/19 07:00 RBC 3.92 M/mm3 (4.00-5.60) L 07/30/19 07:00 Hgb 11.8 GM/dL (11.7-16.9) 07/30/19 07:00 Hct 35.7 % (35.4-49) 07/30/19 07:00 MCV 91.1 fl (80-96) 07/30/19 07:00 MCH 30.0 pg (25.7-33.7) 07/30/19 07:00 MCHC 32.9 g/dl (32.0-35.9) 07/30/19 07:00 RDW 13.1 % (11.9-15.9) 07/30/19 07:00 Plt Count 180 K/MM3 (134-434) 07/30/19 07:00 MPV 9.2 fl (7.5-11.1) 07/30/19 07:00 Sodium 141 mmol/L (136-145) 07/30/19 07:00 Potassium 4.4 mmol/L (3.5-5.1) 07/30/19 07:00 Chloride 107 mmol/L (98-107) 07/30/19 07:00 Carbon Dioxide 32 mmol/L (21-32) 07/30/19 07:00 Anion Gap 2 MMOL/L (8-16) L 07/30/19 07:00 BUN 13.4 mg/dL (7-18) 07/30/19 07:00 Creatinine 0.9 mg/dL (0.55-1.3) 07/30/19 07:00 Est GFR (CKD-EPI)AfAm 131.44 07/30/19 07:00 Est GFR (CKD-EPI)NonAf 113.41 07/30/19 07:00 Random Glucose 82 mg/dL (74-106) 07/30/19 07:00 Calcium 8.8 mg/dL (8.5-10.1) 07/30/19 07:00 Total Bilirubin 0.3 mg/dL (0.2-1) 07/30/19 07:00 AST 27 U/L (15-37) 07/30/19 07:00 ALT 33 U/L (13-61) 07/30/19 07:00 Alkaline Phosphatase 58 U/L (45-117) 07/30/19 07:00 Total Protein 6.2 g/dl (6.4-8.2) L 07/30/19 07:00 Albumin 3.5 g/dl (3.4-5.0) 07/30/19 07:00 Syphilis Serology Non-reactive (NONREACTIVE) 07/30/19 07:00 COVID-19 ([facility]) Not detected (Not Detected) 07/29/19 15:40 HIV Ag/Ab Combo Qual Negative (NEGATIVE) 07/30/19 07:00 Action: Tigan 200mg intramuscular ordered
[2019-07-31] MEDS: THIAMINE HCL 100 MG TABLET (FP) PO SCH (22:01)
[2019-07-31] MEDS: QUEtiapine FUMARATE 50 MG TABLET PO PRN (22:02)
[2019-07-31] MEDS: MELATONIN 5 MG TABLETS PO SCH (22:02)
[2019-08-01] MEDS: diazePAM 5 MG TABLET PO PRN ×3 (05:42→15:30)
[2019-08-01] MEDS: METHOCARBAMOL 500 MG TABLET PO PRN ×2 (05:42→18:06)
[2019-08-01] MEDS ORDERED: METHADONE HCL 10 MG TABLET (FOR DETOX USE ONLY) ONE (09:28)
[2019-08-01] MEDS ORDERED: METHADONE HCL 5 MG TABLET (FOR DETOX USE ONLY) ONE (09:29)
[2019-08-01] MEDS ORDERED: METHADONE (DETOX) 10 MG, METHADONE (DETOX) 5 MG PO ONE (10:00)
[2019-08-01] MEDS: NICOTINE 21 MG/24 HOURS TOPICAL PATCH TD SCH (10:15)
[2019-08-01] MEDS: PRENATAL VITAMINS W/ FOLIC ACID TABLET (FP) PO SCH (10:15)
[2019-08-01] MEDS: BACITRACIN 0.9 GM PACKET TP SCH (10:16)
--- NOTE | 2019-08-01 11:44 | PN ---
[facility] COWS - Scale Resting Pulse: 0= [place] 80 or Below Sweatin= Chills/Flushing Restless Observation: 0= Sits Still Pupil Size: 1= Pupils >than Normal Bone or Joint Aches: 1= Mild Discomfort Runny Nose/ Eye Tearin= Nasal Congestion GI Upset > 30mins: 2= Nausea/Diarrhea Tremor Observation of Outstretched Hands: 1= Tremor [place], Not Seen Yawning Observation: 1= 1-2x During Session Anxiety or Irritability: 1=Feels Anxious/Irritable Goose Flesh Skin: 0=Smooth Skin COWS Score: 9 [facility] Progress Note (SOAP) Subjective: 33 years old male admitted on 07/29/19 for opiate withdrawal sx management treating with methadone detox regiment feeling better today denies vomiting today after breakfast maalox 30 ml po x 1 Objective: 08/01/19 11:49 Vital Signs - 24 hr 07/31/19 07/31/19 07/31/19 12:35 17:13 20:38 Temperature 98.1 F 97.1 F L 97.3 F L Pulse Rate 66 87 69 Respiratory 18 18 18 Rate Blood Pressure 103/62 116/79 119/80 O2 Sat by Pulse 99 99 Oximetry (%) 08/01/19 08/01/19 08/01/19 03:33 06:11 08:30 Temperature 97.7 F 96.1 F L Pulse Rate 76 74 Respiratory 16 18 16 Rate Blood Pressure 100/58 L 100/60 O2 Sat by Pulse 97 Oximetry (%) Laboratory Tests 07/29/19 07/30/19 07/30/19 15:40 07:00 07:00 WBC RBC Hgb Hct MCV MCH MCHC RDW Plt Count MPV Sodium Potassium Chloride Carbon Dioxide Anion Gap BUN Creatinine Est GFR (CKD-EPI)AfAm Est GFR (CKD-EPI)NonAf Random Glucose Calcium Total Bilirubin AST ALT Alkaline Phosphatase Total Protein Albumin Syphilis Serology Non-reactive COVID-19 ([facility]) Not detected HIV Ag/Ab Combo Qual Negative 07/30/19 07/30/19 07:00 07:00 WBC 5.2 RBC 3.92 L Hgb 11.8 Hct 35.7 MCV 91.1 MCH 30.0 MCHC 32.9 RDW 13.1 Plt Count 180 MPV 9.2 Sodium 141 Potassium 4.4 Chloride 107 Carbon Dioxide 32 Anion Gap 2 L BUN 13.4 Creatinine 0.9 Est GFR (CKD-EPI)AfAm 131.44 Est GFR (CKD-EPI)NonAf 113.41 Random Glucose 82 Calcium 8.8 Total Bilirubin 0.3 AST 27 ALT 33 Alkaline Phosphatase 58 Total Protein 6.2 L Albumin 3.5 Syphilis Serology COVID-19 ([facility]) HIV Ag/Ab Combo Qual lab noted Assessment: 08/01/19 11:50 opiate withdrawal Plan: methadone regiment
[2019-08-01] MEDS ORDERED: MAG HYDROX/AL HYDROX/SIMETH 30 ML UNIT-DOSE CUP PO ONE (11:45)
[2019-08-01] MEDS: hydrOXYzine PAMOATE 25 MG CAPSULE (FP) PO PRN ×2 (16:58→22:10)
[2019-08-01] MEDS: MELATONIN 5 MG TABLETS PO SCH (22:09)
[2019-08-01] MEDS: THIAMINE HCL 100 MG TABLET (FP) PO SCH (22:09)
[2019-08-02 09:26] VITALS: BP 90/50; PULSE 71; TEMP 97.3
[2019-08-02] MEDS ORDERED: METHADONE HCL 10 MG TABLET (FOR DETOX USE ONLY) PO ONE (10:00)
[2019-08-02] MEDS: PRENATAL VITAMINS W/ FOLIC ACID TABLET (FP) PO SCH (10:12)
[2019-08-02] MEDS: METHOCARBAMOL 500 MG TABLET PO PRN (10:12)
[2019-08-02] MEDS: NICOTINE 21 MG/24 HOURS TOPICAL PATCH TD SCH (10:13)
[2019-08-02] MEDS: BACITRACIN 0.9 GM PACKET TP SCH (10:14)
--- NOTE | 2019-08-02 10:40 | DS ---
[facility] Detox Discharge Summary Admission Date: 07/29/19 Discharge Date: 08/02/19 - History Present History: Opioid Dependence Additional Comments: 33 years old male admitted on 07/29/19 for opiate withdrawal sx management treated with methadone detox regiment prefers to leave the detox unit today to go to methadone maintenance program case discussed with the counselor [facility] out patient appointment was made on 08/07/19 mr brooke prefers to leave the detox unit today instead of tomorrow as per estimated discharge date alert oriented x 3 speech clearly coherently ambulating steady gaits seen by psychiatrist resume seroquel cardiac [id number] regular rate rhythm respiratory clear lung sounds bilaterally extremities full range of motion Pertinent Past History: time for discharge 46 minutes feeling better today tolerating food and fluid well prefers return to work and return home with family 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 to home arranged by self - Physical Exam Results Vital Signs: Vital Signs Temperature 97.3 F L 08/02/19 08:52 Pulse Rate 71 08/02/19 08:52 Respiratory Rate 18 08/02/19 08:52 Blood Pressure 90/50 L 08/02/19 08:52 O2 Sat by Pulse Oximetry (%) 99 08/02/19 06:14 Pertinent Admission Physical Exam Findings: opiate withdrawal Laboratory Tests 07/29/19 07/30/19 07/30/19 15:40 07:00 07:00 WBC RBC Hgb Hct MCV MCH MCHC RDW Plt Count MPV Sodium Potassium Chloride Carbon Dioxide Anion Gap BUN Creatinine Est GFR (CKD-EPI)AfAm Est GFR (CKD-EPI)NonAf Random Glucose Calcium Total Bilirubin AST ALT Alkaline Phosphatase Total Protein Albumin Syphilis Serology Non-reactive COVID-19 ([facility]) Not detected HIV Ag/Ab Combo Qual Negative 07/30/19 07/30/19 07:00 07:00 WBC 5.2 RBC 3.92 L Hgb 11.8 Hct 35.7 MCV 91.1 MCH 30.0 MCHC 32.9 RDW 13.1 Plt Count 180 MPV 9.2 Sodium 141 Potassium 4.4 Chloride 107 Carbon Dioxide 32 Anion Gap 2 L BUN 13.4 Creatinine 0.9 Est GFR (CKD-EPI)AfAm 131.44 Est GFR (CKD-EPI)NonAf 113.41 Random Glucose 82 Calcium 8.8 Total Bilirubin 0.3 AST 27 ALT 33 Alkaline Phosphatase 58 Total Protein 6.2 L Albumin 3.5 Syphilis Serology COVID-19 ([facility]) HIV Ag/Ab Combo Qual lab noted - Treatment Hospital Course: Detox Protocol Followed, Detoxed Safely, Responded well, Discharged Condition Good, Rehab Referral Accepted Patient has Accepted a Rehab Referral to: [facility] - Medication Discharge Medications: Ambulatory Orders Naloxone HCl [Narcan] 4 mg NS ASDIR PRN #1 spray 08/02/19 - Diagnosis (1) Opioid dependence with withdrawal Status: Acute (2) Substance induced mood disorder Status: Suspected (3) Nicotine dependence Status: Acute Qualifiers: Nicotine product type: cigarettes Substance use status: in withdrawal Qualified Code(s): F17.213 - Nicotine dependence, cigarettes, with withdrawal - AMA Did Patient Leave Against Medical Advice: No COWS (PN) - Opiate Withdrawal Resting Pulse: 0= [place] 80 or Below Sweatin= No chills or Flushing Restless Observation: 0= Sits Still Pupil Size: 0= Normal to Room Light Bone or Joint Aches: 1= Mild Discomfort Runny Nose/ Eye Tearin= Nasal Congestion GI Upset > 30mins: 0= None Tremor Observation of Outstretched Hands: 1= Tremor [place], Not Seen Yawning Observation: 1= 1-2x During Session Anxiety or Irritability: 1=Feels Anxious/Irritable Goose Flesh Skin: 0=Smooth Skin COWS Score: 5
[2019-08-03] MEDS ORDERED: METHADONE HCL 5 MG TABLET (FOR DETOX USE ONLY) PO ONE (06:00)
== END 2019-08-02 10:45 | disposition home or self-care (01) | DRG 773 ==
LOC: YASAS 13:44 → Y6N 15:35 → Y3N 07-31 10:56
PROVIDERS: ADMIT Allergy & Immunology; ATTEND Allergy & Immunology
PROC: HZ2ZZZZ Detoxification Services for Substance Abuse Treatment (ICD-10-PCS; principal; 2019-07-29)
DX: F11.23 Opioid dependence with withdrawal (principal); F12.20 Cannabis dependence, uncomplicated; F17.210 Nicotine dependence, cigarettes, uncomplicated; F19.282 Other psychoactive substance dependence with psychoactive substance-induced sleep disorder; F19.24 Other psychoactive substance dependence with psychoactive substance-induced mood disorder; F51.05 Insomnia due to other mental disorder; F41.8 Other specified anxiety disorders; F32.9 Major depressive disorder, single episode, unspecified; S51.011D Laceration without foreign body of right elbow, subsequent encounter; X58.XXXD Exposure to other specified factors, subsequent encounter
CPT/HCPCS: 36415; 80053; 85027; 86780; 87389; J0735; U0003

== ENCOUNTER 2021-01-29 08:43 | Inpatient (IN) | payer OTHER ==
[2021-01-29 09:13] VITALS: BMI 25.3
[2021-01-29] MEDS ORDERED: IBUPROFEN 400 MG TABLET (FP) PO PRN (09:42)
[2021-01-29] MEDS ORDERED: MAGNESIUM CITRATE 300 ML BOTTLE PO PRN (09:42)
[2021-01-29] MEDS ORDERED: METHOCARBAMOL 500 MG TABLET PO PRN (09:42)
[2021-01-29] MEDS ORDERED: MAGNESIUM HYDROX 2400MG/30ML ORAL SUSPENSION 30 ML CUP PO PRN (09:42)
[2021-01-29] MEDS ORDERED: NICOTINE 10 MG CARTRIDGE (INHALER) IH PRN (09:42)
[2021-01-29] MEDS ORDERED: ONDANSETRON *ODT* 4 MG TABLET SL PRN (09:42)
[2021-01-29] MEDS ORDERED: BISMUTH SUBSALICYLATE 262 MG/15 ML BTL PO PRN (09:42)
[2021-01-29] MEDS ORDERED: MENTHOL/PHENOL 1 EACH UD MM PRN (09:42)
[2021-01-29] MEDS ORDERED: MAG HYDROX/AL HYDROX/SIMETH 30 ML UNIT-DOSE CUP PO PRN (09:42)
[2021-01-29] MEDS ORDERED: methaDONE HCL 10 MG TABLET (FOR DETOX USE ONLY) PO ONE (09:42)
[2021-01-29] MEDS ORDERED: ACETAMINOPHEN 325 MG TABLET (FP) PO PRN ×2 (09:42)
[2021-01-29] MEDS ORDERED: NALOXONE (NARCAN) HCL 4 MG/0.1 ML SPRAY NS PRN (09:48)
[2021-01-29] MEDS: hydrOXYzine PAMOATE 25 MG CAPSULE (FP) PO SCH ×4 (11:05→22:57)
[2021-01-29] MEDS: PRENATAL VITAMINS W/ FOLIC ACID TABLET (FP) PO SCH (11:05)
[2021-01-29] MEDS: cloNIDine HCL 0.1 MG TABLET PO PRN (17:41)
[2021-01-29] MEDS: MELATONIN 5 MG TABLETS PO SCH (22:56)
[2021-01-29] MEDS: QUEtiapine FUMARATE 50 MG TABLET PO SCH (22:56)
[2021-01-29] MEDS: THIAMINE HCL 100 MG TABLET (FP) PO SCH (22:57)
[2021-01-30] MEDS: hydrOXYzine PAMOATE 25 MG CAPSULE (FP) PO SCH ×5 (05:51→22:42)
[2021-01-30] MEDS ORDERED: methaDONE HCL 10 MG TABLET (FOR DETOX USE ONLY) ONE (09:17)
[2021-01-30] MEDS: PRENATAL VITAMINS W/ FOLIC ACID TABLET (FP) PO SCH (09:33)
[2021-01-30] MEDS: diazePAM 5 MG TABLET PO PRN ×3 (10:49→19:35)
[2021-01-30 12:27] LABS: ALBUMIN 4.1 g/dl (3.4-5.0); CALCIUM 9.5 mg/dL (8.5-10.1)
[2021-01-30 12:28] LABS: BLOOD UREA NITROGEN 9.3 mg/dL (7-18)
[2021-01-30 12:31] LABS: CREATININE 1.1 mg/dL (0.55-1.3)
[2021-01-30 12:32] LABS: BILIRUBIN,TOTAL 0.4 mg/dL (0.2-1); TOT PROT 7.8 g/dl (6.4-8.2)
[2021-01-30 13:18] LABS: HEMATOCRIT 40.2 % (35.4-49); HEMOGLOBIN 13.7 GM/dL (11.7-16.9); MCH 29.2 pg (25.7-33.7); MCHC 34.1 g/dl (32.0-35.9); MEAN CELL VOLUME 85.7 fl (80-96); MEAN PLT VOLUME 9.5 fl (7.5-11.1); PLATELET COUNT 233 10^3/uL (134-434); RBC 4.69 M/mm3 (4.00-5.60); RDW 13.3 % (11.9-15.9); WHITE BLOOD COUNT 8.8 K/mm3 (4.0-10.0)
[2021-01-30] MEDS: MELATONIN 5 MG TABLETS PO SCH (22:42)
[2021-01-30] MEDS: cloNIDine HCL 0.1 MG TABLET PO PRN (22:43)
[2021-01-30] MEDS: THIAMINE HCL 100 MG TABLET (FP) PO SCH (22:43)
[2021-01-30] MEDS: QUEtiapine FUMARATE 50 MG TABLET PO SCH (22:43)
[2021-01-31] MEDS: hydrOXYzine PAMOATE 25 MG CAPSULE (FP) PO SCH ×5 (07:11→22:07)
[2021-01-31] MEDS: diazePAM 5 MG TABLET PO PRN ×4 (08:55→22:07)
[2021-01-31] MEDS: PRENATAL VITAMINS W/ FOLIC ACID TABLET (FP) PO SCH (09:00)
[2021-01-31] MEDS ORDERED: methaDONE HCL 10 MG TABLET (FOR DETOX USE ONLY) PO ONE (10:00)
[2021-01-31] MEDS: MELATONIN 5 MG TABLETS PO SCH (22:07)
[2021-01-31] MEDS: THIAMINE HCL 100 MG TABLET (FP) PO SCH (22:07)
[2021-01-31] MEDS: QUEtiapine FUMARATE 50 MG TABLET PO SCH (22:07)
[2021-02-01] MEDS: diazePAM 5 MG TABLET PO PRN ×3 (02:17→10:43)
[2021-02-01] MEDS: hydrOXYzine PAMOATE 25 MG CAPSULE (FP) PO SCH ×2 (06:10→10:47)
[2021-02-01 08:54] VITALS: BP 110/72; PULSE 98; TEMP 96.8
[2021-02-01] MEDS ORDERED: methaDONE HCL 10 MG TABLET (FOR DETOX USE ONLY) ONE (09:02)
[2021-02-01] MEDS: PRENATAL VITAMINS W/ FOLIC ACID TABLET (FP) PO SCH (09:39)
[2021-02-02] MEDS ORDERED: methaDONE HCL 10 MG TABLET (FOR DETOX USE ONLY) PO ONE (10:00)
== END 2021-02-01 11:53 | disposition left against medical advice (07) | DRG 770 ==
LOC: YASAS 08:43 → Y3N 09:48
PROVIDERS: ADMIT Allergy & Immunology; ATTEND Allergy & Immunology
PROC: HZ2ZZZZ Detoxification Services for Substance Abuse Treatment (ICD-10-PCS; principal; 2021-01-29)
DX: F11.23 Opioid dependence with withdrawal (principal); F14.20 Cocaine dependence, uncomplicated; F12.20 Cannabis dependence, uncomplicated; F17.213 Nicotine dependence, cigarettes, with withdrawal; F19.282 Other psychoactive substance dependence with psychoactive substance-induced sleep disorder; Z56.0 Unemployment, unspecified
CPT/HCPCS: 36415; 80053; 85027; 86780; C9803; J0735; Q0162; U0003; U0005

== ENCOUNTER 2021-05-26 10:24 | Inpatient (IN) | payer OTHER ==
[2021-05-26] MEDS ORDERED: cloNIDine HCL 0.1 MG TABLET PO PRN (10:55)
[2021-05-26] MEDS ORDERED: ONDANSETRON *ODT* 4 MG TABLET SL PRN (10:55)
[2021-05-26] MEDS ORDERED: MAGNESIUM CITRATE 300 ML BOTTLE PO PRN (10:55)
[2021-05-26] MEDS ORDERED: NICOTINE 10 MG CARTRIDGE (INHALER) IH PRN (10:55)
[2021-05-26] MEDS ORDERED: BENZOCAINE/MENTHOL (CHLORASEPTIC ) LOZENGE MM PRN (10:55)
[2021-05-26] MEDS ORDERED: ACETAMINOPHEN 325 MG TABLET (FP) PO PRN ×2 (10:55)
[2021-05-26] MEDS ORDERED: DICYCLOMINE HCL 10 MG CAPSULE PO PRN (10:55)
[2021-05-26] MEDS ORDERED: MAG HYDROX/AL HYDROX/SIMETH 30 ML UNIT-DOSE CUP PO PRN (10:55)
[2021-05-26] MEDS ORDERED: methaDONE HCL 10 MG TABLET (FOR DETOX USE ONLY) PO ONE (10:55)
[2021-05-26] MEDS ORDERED: BISMUTH SUBSALICYLATE 262 MG/15 ML BTL PO PRN (10:55)
[2021-05-26] MEDS ORDERED: MAGNESIUM HYDROX 2400MG/30ML ORAL SUSPENSION 30 ML CUP PO PRN (10:55)
[2021-05-26] MEDS ORDERED: IBUPROFEN 400 MG TABLET (FP) PO PRN (10:55)
[2021-05-26] MEDS ORDERED: LOPERAMIDE HCL 2 MG CAPSULE PO PRN (10:55)
[2021-05-26 12:23] VITALS: BMI 25.0
[2021-05-26] MEDS ORDERED: methaDONE HCL 10 MG TABLET (FOR DETOX USE ONLY) ONE (12:42)
[2021-05-26] MEDS: PRENATAL VITAMINS W/ FOLIC ACID TABLET (FP) PO SCH (13:30)
[2021-05-26] MEDS: NICOTINE 14 MG/24 HOURS TOPICAL PATCH TD SCH (13:30)
[2021-05-26] MEDS: hydrOXYzine PAMOATE 25 MG CAPSULE (FP) PO SCH ×3 (13:30→22:18)
[2021-05-26 13:31] LABS: HEMATOCRIT 37.7 % (35.4-49); HEMOGLOBIN 12.9 GM/dL (11.7-16.9); MCH 29.1 pg (25.7-33.7); MCHC 34.2 g/dl (32.0-35.9); MEAN CELL VOLUME 85.1 fl (80-96); MEAN PLT VOLUME 9.2 fl (7.5-11.1); PLATELET COUNT 187 10^3/uL (134-434); RBC 4.43 M/mm3 (4.00-5.60); RDW 13.2 % (11.9-15.9); WHITE BLOOD COUNT 6.9 K/mm3 (4.0-10.0)
[2021-05-26 13:36] LABS: CALCIUM 9.4 mg/dL (8.5-10.1)
[2021-05-26 13:37] LABS: ALBUMIN 4.1 g/dl (3.4-5.0); BLOOD UREA NITROGEN 13.2 mg/dL (7-18)
[2021-05-26 13:40] LABS: CREATININE 1.3 mg/dL (0.55-1.3)
[2021-05-26 13:41] LABS: BILIRUBIN,TOTAL 0.4 mg/dL (0.2-1); TOT PROT 7.1 g/dl (6.4-8.2)
[2021-05-26] MEDS: THIAMINE HCL 100 MG TABLET (FP) PO SCH (22:18)
[2021-05-26] MEDS: MELATONIN 5 MG TABLETS PO SCH (22:19)
[2021-05-27] MEDS: hydrOXYzine PAMOATE 25 MG CAPSULE (FP) PO SCH ×5 (06:35→22:34)
[2021-05-27] MEDS ORDERED: methaDONE HCL 10 MG TABLET (FOR DETOX USE ONLY) ONE (09:44)
[2021-05-27] MEDS: PRENATAL VITAMINS W/ FOLIC ACID TABLET (FP) PO SCH (10:52)
[2021-05-27] MEDS: diazePAM 5 MG TABLET PO PRN ×2 (10:53→19:04)
[2021-05-27] MEDS: NICOTINE 14 MG/24 HOURS TOPICAL PATCH TD SCH (10:54)
[2021-05-27] MEDS: MELATONIN 5 MG TABLETS PO SCH (22:34)
[2021-05-27] MEDS: THIAMINE HCL 100 MG TABLET (FP) PO SCH (22:34)
[2021-05-28] MEDS: diazePAM 5 MG TABLET PO PRN ×3 (02:53→22:13)
[2021-05-28] MEDS: hydrOXYzine PAMOATE 25 MG CAPSULE (FP) PO SCH ×5 (07:41→22:12)
[2021-05-28] MEDS ORDERED: methaDONE HCL 10 MG TABLET (FOR DETOX USE ONLY) PO ONE (10:00)
[2021-05-28] MEDS: NICOTINE 14 MG/24 HOURS TOPICAL PATCH TD SCH (10:48)
[2021-05-28] MEDS: METHOCARBAMOL 500 MG TABLET PO PRN (10:49)
[2021-05-28] MEDS: PRENATAL VITAMINS W/ FOLIC ACID TABLET (FP) PO SCH (10:49)
[2021-05-28 16:08] LABS: SARS-CoV-2 NAA Not Detected (Not Detected)
[2021-05-28] MEDS: MELATONIN 5 MG TABLETS PO SCH (22:12)
[2021-05-28] MEDS: THIAMINE HCL 100 MG TABLET (FP) PO SCH (22:12)
[2021-05-29] MEDS: diazePAM 5 MG TABLET PO PRN (06:08)
[2021-05-29] MEDS: hydrOXYzine PAMOATE 25 MG CAPSULE (FP) PO SCH ×2 (06:09→10:10)
[2021-05-29 08:57] VITALS: BP 114/73; PULSE 83; TEMP 97.7
[2021-05-29] MEDS ORDERED: methaDONE HCL 10 MG TABLET (FOR DETOX USE ONLY) ONE (09:38)
[2021-05-29] MEDS: PRENATAL VITAMINS W/ FOLIC ACID TABLET (FP) PO SCH (10:10)
[2021-05-29] MEDS: NICOTINE 14 MG/24 HOURS TOPICAL PATCH TD SCH (10:10)
[2021-05-29] MEDS: METHOCARBAMOL 500 MG TABLET PO PRN (10:11)
[2021-05-30] MEDS ORDERED: methaDONE HCL 10 MG TABLET (FOR DETOX USE ONLY) PO ONE (10:00)
== END 2021-05-29 10:50 | disposition left against medical advice (07) | DRG 770 ==
LOC: YASAS 10:24 → Y3N 12:21
PROVIDERS: ADMIT Allergy & Immunology; ATTEND Allergy & Immunology
PROC: HZ2ZZZZ Detoxification Services for Substance Abuse Treatment (ICD-10-PCS; principal; 2021-05-26)
DX: F11.23 Opioid dependence with withdrawal (principal); F14.20 Cocaine dependence, uncomplicated; F12.20 Cannabis dependence, uncomplicated; F17.213 Nicotine dependence, cigarettes, with withdrawal; F19.24 Other psychoactive substance dependence with psychoactive substance-induced mood disorder
CPT/HCPCS: 36415; 80053; 85027; 86780; 87811; C9803-CS; J0735; U0003; U0005

== ENCOUNTER 2022-04-17 11:21 | Inpatient (IN) | payer OTHER ==
[2022-04-17 11:44] VITALS: BMI 23.6
[2022-04-17] MEDS ORDERED: hydrOXYzine PAMOATE 25 MG CAPSULE (FP) PO PRN (15:06)
[2022-04-17] MEDS ORDERED: POLYETHYLENE GLYCOL (HEALTHYLAX) 3350 17 GM PACKET PO PRN (15:06)
[2022-04-17] MEDS ORDERED: ONDANSETRON *ODT* 4 MG TABLET SL PRN (15:06)
[2022-04-17] MEDS ORDERED: DICYCLOMINE HCL 10 MG CAPSULE PO PRN (15:06)
[2022-04-17] MEDS ORDERED: MAG HYDROX/AL HYDROX/SIMETH 30 ML UNIT-DOSE CUP PO PRN (15:06)
[2022-04-17] MEDS ORDERED: IBUPROFEN 600 MG TABLET (FP) PO PRN (15:06)
[2022-04-17] MEDS ORDERED: MAGNESIUM HYDROX 2400MG/30ML ORAL SUSPENSION 30 ML CUP PO PRN (15:06)
[2022-04-17] MEDS ORDERED: ACETAMINOPHEN 325 MG TABLET (FP) PO PRN (15:06)
[2022-04-17] MEDS ORDERED: LOPERAMIDE HCL 2 MG CAPSULE PO PRN (15:06)
[2022-04-17] MEDS ORDERED: NALOXONE HCL (KLOXXADO) 8 MG SPRAY NS PRN (15:06)
[2022-04-17] MEDS ORDERED: IBUPROFEN 400 MG TABLET (FP) PO PRN (15:06)
[2022-04-17] MEDS ORDERED: NICOTINE 10 MG CARTRIDGE (INHALER) IH PRN (15:06)
[2022-04-17] MEDS ORDERED: BENZOCAINE/MENTHOL (CHLORASEPTIC ) LOZENGE MM PRN (15:06)
[2022-04-17] MEDS ORDERED: BISMUTH SUBSALICYLATE 524 MG/30 ML PO PRN (15:06)
[2022-04-17] MEDS ORDERED: methaDONE HCL 10 MG TABLET (FOR DETOX USE ONLY) PO ONE (15:09)
[2022-04-17] MEDS ORDERED: cloNIDine HCL 0.1 MG TABLET PO PRN (15:09)
[2022-04-17] MEDS ORDERED: methaDONE HCL 10 MG TABLET (FOR DETOX USE ONLY) ONE (15:36)
[2022-04-17] MEDS ORDERED: diazePAM 5 MG TABLET ONE (15:37)
[2022-04-17] MEDS: diazePAM 5 MG TABLET PO PRN ×2 (15:43→22:19)
[2022-04-17] MEDS: ACETAMINOPHEN 325 MG TABLET (FP) PO PRN (18:06)
[2022-04-17] MEDS: THIAMINE HCL 100 MG TABLET (FP) PO SCH (22:20)
[2022-04-17] MEDS: MELATONIN 5 MG TABLETS PO SCH (22:20)
[2022-04-18] MEDS: PRENATAL VITAMINS W/ FOLIC ACID TABLET (FP) PO SCH (10:45)
[2022-04-18] MEDS: diazePAM 5 MG TABLET PO PRN ×2 (10:47→18:23)
[2022-04-18] MEDS: ACETAMINOPHEN 325 MG TABLET (FP) PO PRN (18:24)
[2022-04-18] MEDS: THIAMINE HCL 100 MG TABLET (FP) PO SCH ×2 (22:55→22:59)
[2022-04-18] MEDS: MELATONIN 5 MG TABLETS PO SCH ×2 (22:55→22:59)
[2022-04-18] MEDS: METHOCARBAMOL 500 MG TABLET PO PRN (22:56)
[2022-04-19] MEDS: diazePAM 5 MG TABLET PO PRN ×2 (07:36→22:16)
[2022-04-19] MEDS ORDERED: methaDONE HCL 10 MG TABLET (FOR DETOX USE ONLY) PO ONE (10:00)
[2022-04-19] MEDS: PRENATAL VITAMINS W/ FOLIC ACID TABLET (FP) PO SCH (10:25)
[2022-04-19] MEDS: METHOCARBAMOL 500 MG TABLET PO PRN (10:25)
[2022-04-19] MEDS: ACETAMINOPHEN 325 MG TABLET (FP) PO PRN (22:17)
[2022-04-19] MEDS: MELATONIN 5 MG TABLETS PO SCH (22:18)
[2022-04-19] MEDS: THIAMINE HCL 100 MG TABLET (FP) PO SCH (22:18)
[2022-04-20] MEDS: PRENATAL VITAMINS W/ FOLIC ACID TABLET (FP) PO SCH (10:45)
[2022-04-20] MEDS: diazePAM 5 MG TABLET PO PRN ×2 (10:48→17:29)
[2022-04-20 17:20] LABS: HEMATOCRIT 41.4 % (35.4-49); HEMOGLOBIN 13.9 GM/dL (11.7-16.9); MCH 28.7 pg (25.7-33.7); MCHC 33.7 g/dl (32.0-35.9); MEAN CELL VOLUME 85.2 fl (80-96); PLATELET COUNT 218 10^3/uL (134-434); RBC 4.86 M/mm3 (4.00-5.60); RDW 12.9 % (11.9-15.9); WHITE BLOOD COUNT 10.5 K/mm3 (4.0-10.0)
[2022-04-20 17:26] LABS: ALBUMIN 4.1 g/dl (3.4-5.0); BLOOD UREA NITROGEN 14.9 mg/dL (7-18); CALCIUM 9.9 mg/dL (8.5-10.1)
[2022-04-20] MEDS: METHOCARBAMOL 500 MG TABLET PO PRN (17:29)
[2022-04-20 17:31] LABS: BILIRUBIN,TOTAL 0.4 mg/dL (0.2-1); TOT PROT 7.3 g/dl (6.4-8.2)
[2022-04-20] MEDS: MELATONIN 5 MG TABLETS PO SCH (22:55)
[2022-04-20] MEDS: THIAMINE HCL 100 MG TABLET (FP) PO SCH (22:55)
[2022-04-20] MEDS ORDERED: TRIMETHOBENZAMIDE HCL 200MG/2ML INJ IM ONE (23:07)
[2022-04-21] MEDS: diazePAM 5 MG TABLET PO PRN ×2 (09:59→17:44)
[2022-04-21] MEDS: PRENATAL VITAMINS W/ FOLIC ACID TABLET (FP) PO SCH (09:59)
[2022-04-21] MEDS ORDERED: methaDONE HCL 10 MG TABLET (FOR DETOX USE ONLY) PO ONE (10:00)
[2022-04-21 13:11] VITALS: BP 109/57; PULSE 93; RESP 18; TEMP 97.3
== END 2022-04-21 18:38 | disposition left against medical advice (07) | DRG 770 ==
LOC: YASAS 11:21 → Y3N 17:25
PROVIDERS: ADMIT Allergy & Immunology; ATTEND Surgery
PROC: HZ2ZZZZ Detoxification Services for Substance Abuse Treatment (ICD-10-PCS; principal; 2022-04-17)
DX: F11.23 Opioid dependence with withdrawal (principal); F14.20 Cocaine dependence, uncomplicated; F17.210 Nicotine dependence, cigarettes, uncomplicated; F19.24 Other psychoactive substance dependence with psychoactive substance-induced mood disorder; F41.9 Anxiety disorder, unspecified; F32.A Depression, unspecified; M54.50 Low back pain, unspecified; G89.29 Other chronic pain; Z28.310 Unvaccinated for COVID-19; Z28.9 Immunization not carried out for unspecified reason
CPT/HCPCS: 36415; 80053; 85027; 86780; 87811; C9803-CS; Q0162; U0003; U0005